=== PATIENT | male | born 1960 | race African-American/Black ===

== ENCOUNTER 2017-11-14 18:35 | Emergency (ER) | payer OTHER ==
[~2017-11-14] VITALS: Ht 180.3 cm; Wt 77.1 kg
[2017-11-14 19:40] VITALS: BP 146/72
[2017-11-14] MEDS ORDERED: PHENERGAN25 M1 ORAL (20:03)
[2017-11-14] MEDS ORDERED: PERCOCET 10-321 EACH ORAL (20:03)
[2017-11-14 20:20] VITALS: BP 146/72
--- NOTE | 2017-11-14 20:55 | Emergency Room Report ---
History of Present Illness General Chief Complaint: Abdominal Pain Source: Patient Present Illness HPI Patient has a history of Crohn's disease or prior abdominal surgery. Patient also states that he has a history of lymphoma. Patient has recurrent Crohn's disease exacerbation and usually requires pain medications. However patient has been in the past and has had concern for drug abuse. Present any fever. Denies any nausea vomiting diarrhea chills. No other complaints are noted. Symptoms noted moderate. Initially patient wanted IM injections of pain medication but when he realized it was a fairly long wait to get of bed he decided that he only wanted prescriptions. Symptoms noted to be moderate to severe. No other modifying factors. No other associated signs and symptoms. No other complaints were noted. Allergies: Coded Allergies: ASPIRIN (Unverified Allergy, Unknown, 09/09/14) BENTIROMIDE (Unverified Allergy, Unknown, 09/09/14) CODEINE (Unverified Allergy, Unknown, 09/09/14) IBUPROFEN (Unverified Allergy, Unknown, 09/09/14) IODINE (Unverified Allergy, Unknown, 09/09/14) KETOROLAC (Unverified Allergy, Unknown, 09/09/14) MORPHINE (Unverified Allergy, Unknown, 09/09/14) PREDNISOLONE (Unverified Allergy, Unknown, 09/09/14) SHELLFISH DERIVED (Unverified Allergy, Unknown, 09/09/14) SULFA (SULFONAMIDE ANTIBIOTICS) (Unverified Allergy, Unknown, 09/09/14) TRAMADOL (Unverified Allergy, Unknown, 09/09/14) Patient History Past Medical History: other - peripheral vascularsease PMH Narrative Crohn's disease, lymphoma PSxH Narrative abdominal surgery Social History: Denies: smoking, alcohol use, drug use Reviewed Nursing Documentation: PMH: Agreed, PSxH: Agreed Nursing Documentation-PMH Hx Cardiac Problems: Yes - PVD Hx Hypertension: Yes Hx Asthma: Yes Hx COPD: No - lymphoma Hx Gastrointestinal Problems: Yes - BOWEL RESECTION, COLOSTOMY, chron's Review of Systems All Other Systems: negative except mentioned in HPI Physical Exam Vital Signs Date Time Temp Pulse Resp B/P (MAP) Pulse Ox O2 Delivery O2 Flow Rate FiO2 11/14/17 18:43 98.2 66 20 155/72 96 Room Air Sp02 EP Interpretation: reviewed, normal General Appearance: normal inspection, well appearing, no apparent distress, alert Head: atraumatic Eyes: bilateral eye normal inspection ENT: normal ENT inspection, hearing grossly normal, normal voice Neck: normal inspection, full range of motion, supple, no bony tend Respiratory: normal inspection, lungs clear, normal breath sounds, no respiratory distress, no retraction, no wheezing Cardiovascular #1: regular rate, rhythm, no edema Gastrointestinal: normal inspection, normal bowel sounds, non tender, soft, no guarding, no hernia Genitourinary: no CVA tenderness Musculoskeletal: normal inspection, back normal, normal range of motion Neurologic: normal inspection, alert, responsive, speech normal Psychiatric: normal inspection, judgement/insight normal, mood/affect normal Skin: normal inspection, normal color, no rash Medical Decision Making Diagnostic Impression: Primary Impression: Chronic pain Additional Impression: Crohn disease ER Course Patient presents emergency department today complaining of abdominal pain. Differential considerations include Crohn's disease, drug seeking behavior, constipation, chronic abdominal pain, gastritis just to name a few. Patient's exam showed benign. Given patient's history of Crohn disease I felt it was reasonable provide pain medications. Patient was given a prescription for pain medications and nausea medications.Patient is advised to follow up with primary doctor in 2-3 days and return the emergency room for any worsening symptoms and as needed. Last Vital Signs Date Time Temp Pulse Resp B/P (MAP) Pulse Ox O2 Delivery O2 Flow Rate FiO2 11/14/17 18:43 98.2 66 20 155/72 96 Room Air Status: improved Disposition: HOME, SELF-CARE Condition: Stable Scripts Promethazine Hcl* (PHENERGAN*) 25 Mg Tablet 25 MG ORAL Q6H, #15 TAB 0 Refills Prov: ELIJAH FRANCIS M.D. 11/14/17 Oxycodone Hcl/Acetaminophen 10-325 Mg Tablet (PERCOCET 10-325 MG TABLET*) 1 Each Tablet 1 TAB ORAL Q6H Y for For Pain, #10 TAB 0 Refills Prov: ELIJAH FRANCIS M.D. 11/14/17 Referrals: NOT CHOSEN IPA/,REFERRING (PCP) Patient Instructions: Abdominal Pain, Adult ELIJAH FRANCIS M.D. Nov 14, 2017 20:54
== END 2017-11-14 20:30 | disposition home or self-care (01) ==
LOC: EMR 19:20
DX: G89.29 Other chronic pain (principal); K50.90 Crohn's disease, unspecified, without complications; Z98.890 Other specified postprocedural states; I10 Essential (primary) hypertension; J45.909 Unspecified asthma, uncomplicated; I73.9 Peripheral vascular disease, unspecified
CPT/HCPCS: 99284

== ENCOUNTER 2017-11-18 09:02 | Emergency (ER) | payer OTHER ==
[~2017-11-18] VITALS: Ht 180.3 cm; Wt 83.9 kg
[~2017-11-18 09:02] MED LIST: PERCOCET 10-321 EACH ORAL; PHENERGAN25 M1 ORAL
[2017-11-18 09:09] VITALS: BP 164/93
[2017-11-18] MEDS ORDERED: ALBUTEROL2.5 MG/3 M INH (09:12)
--- NOTE | 2017-11-18 09:34 | Emergency Room Report ---
History of Present Illness General Chief Complaint: Abdominal Pain Source: Patient Present Illness HPI Patient's 57-year-old male who presented after increased abdominal pain. The patient history of Crohn's disease. He states that he has lymphoma. The patient reports having increased diarrhea. He is chronically on narcotics. The patient is well-known to me for multiple years. Patient had multiple medication allergies. Allergies: Coded Allergies: ASPIRIN (Unverified Allergy, Unknown, 09/09/14) BENTIROMIDE (Unverified Allergy, Unknown, 09/09/14) CODEINE (Unverified Allergy, Unknown, 09/09/14) IBUPROFEN (Unverified Allergy, Unknown, 09/09/14) IODINE (Unverified Allergy, Unknown, 09/09/14) KETOROLAC (Unverified Allergy, Unknown, 09/09/14) MORPHINE (Unverified Allergy, Unknown, 09/09/14) PREDNISOLONE (Unverified Allergy, Unknown, 09/09/14) SHELLFISH DERIVED (Unverified Allergy, Unknown, 09/09/14) SULFA (SULFONAMIDE ANTIBIOTICS) (Unverified Allergy, Unknown, 09/09/14) TRAMADOL (Unverified Allergy, Unknown, 09/09/14) Patient History Past Medical History: see triage record Reviewed Nursing Documentation: PMH: Agreed, PSxH: Agreed Nursing Documentation-PMH Hx Cardiac Problems: Yes - PVD Hx Hypertension: Yes Hx Asthma: Yes Hx COPD: No - lymphoma Hx Gastrointestinal Problems: Yes - BOWEL RESECTION, COLOSTOMY, chron's Review of Systems All Other Systems: negative except mentioned in HPI Physical Exam Vital Signs Date Time Temp Pulse Resp B/P (MAP) Pulse Ox O2 Delivery O2 Flow Rate FiO2 11/18/17 09:09 98.4 79 18 164/93 100 Room Air General Appearance: well appearing, no apparent distress, alert, GCS 15 Head: normocephalic, atraumatic ENT: hearing grossly normal, normal voice Neck: full range of motion, supple Respiratory: no respiratory distress, speaking full sentences Cardiovascular #1: normal peripheral pulses, regular rate, rhythm Gastrointestinal: normal inspection Musculoskeletal: normal inspection, no calf tenderness Neurologic: normal inspection, alert, oriented x3, normal gait Psychiatric: mood/affect normal Skin: no rash Medical Decision Making Diagnostic Impression: Primary Impression: Chronic pain Additional Impression: Crohn disease ER Course Patient presented for abdominal pain. Differential diagnoses included ischemic bowel, appendicitis, perforated viscus, abdominal aortic aneurysm, inferior myocardial infarction, viral gastroenteritis Patient has a benign exam and does not appear to require any further imaging or laboratory testing at this time. The patient was given pain medications. The patient Cures report was reviewed. The patient appears to have adequate dosage of the pain medications. Patient was advised he would not be given prescriptions or further nonnarcotic pain medications if he presented to the emergency department. Last Vital Signs Date Time Temp Pulse Resp B/P (MAP) Pulse Ox O2 Delivery O2 Flow Rate FiO2 11/18/17 09:09 98.4 79 18 164/93 100 Room Air Status: improved Disposition: HOME, SELF-CARE Condition: Stable Patient Instructions: Abdominal Pain, Adult Yuri Reid Nov 18, 2017 09:34
[2017-11-18 09:48] VITALS: BP 164/93
== END 2017-11-18 09:48 | disposition home or self-care (01) ==
LOC: EMR 09:40
DX: G89.29 Other chronic pain (principal); K50.90 Crohn's disease, unspecified, without complications; I10 Essential (primary) hypertension; J45.909 Unspecified asthma, uncomplicated; Z85.72 Personal history of non-Hodgkin lymphomas; I73.9 Peripheral vascular disease, unspecified
CPT/HCPCS: 96372; 99283; J1170; J2550

== ENCOUNTER 2017-12-22 11:49 | Emergency (ER) | payer OTHER ==
[~2017-12-22] VITALS: Ht 180.3 cm; Wt 83.9 kg
[~2017-12-22 11:49] MED LIST changes: +ALBUTEROL2.5 MG/3 M INH
[2017-12-22 12:08] VITALS: BP 169/77
--- NOTE | 2017-12-22 13:37 | Emergency Room Report ---
History of Present Illness General Chief Complaint: Abdominal Pain Present Illness HPI 57 yo male patient presents to ER complaining of abdominal pain. Patient requesting pain medication; states he does not want labs drawn. Reports history of Crohn's Disease and Lymphoma; states he is currently being treated and followed for treatment of both by physician. Reports hx of 5 bowel resection surgeries. Patient reports pain is chronic; states he has prescription for pain medication from primary care but was unable to fill prescription. States he has been seen in ER previously for same symptoms. Denies new or worsening of symptoms. Denies fever, chest pain, SOB, blood in stool, diarrhea, constipation. Allergies: Coded Allergies: ASPIRIN (Unverified Allergy, Unknown, 09/09/14) BENTIROMIDE (Unverified Allergy, Unknown, 09/09/14) CODEINE (Unverified Allergy, Unknown, 09/09/14) DICYCLOMINE (Verified Allergy, Unknown, 12/22/17) IBUPROFEN (Unverified Allergy, Unknown, 09/09/14) IODINE (Unverified Allergy, Unknown, 09/09/14) KETOROLAC (Unverified Allergy, Unknown, 09/09/14) MORPHINE (Unverified Allergy, Unknown, 09/09/14) PREDNISOLONE (Unverified Allergy, Unknown, 09/09/14) PREDNISONE (Verified Allergy, Unknown, 12/22/17) SHELLFISH DERIVED (Unverified Allergy, Unknown, 09/09/14) SULFA (SULFONAMIDE ANTIBIOTICS) (Unverified Allergy, Unknown, 09/09/14) TRAMADOL (Unverified Allergy, Unknown, 09/09/14) Uncoded Allergies: CONTRAST DYE (Allergy, Unknown, 12/22/17) Nursing Documentation-PMH Hx Hypertension: Yes Hx Asthma: Yes Hx COPD: No - lymphoma Hx Cancer: Yes - Lymphoma Hx Gastrointestinal Problems: Yes - BOWEL RESECTION, COLOSTOMY(Surgery no longer has colostomy), Crohn's Review of Systems All Other Systems: negative except mentioned in HPI Physical Exam Vital Signs Date Time Temp Pulse Resp B/P (MAP) Pulse Ox O2 Delivery O2 Flow Rate FiO2 12/22/17 11:58 97.9 71 18 179/79 99 Room Air 97.9 Sp02 EP Interpretation: reviewed, normal General Appearance: no apparent distress, alert, GCS 15, non-toxic Head: normocephalic, atraumatic Eyes: bilateral eye normal inspection, bilateral eye PERRL ENT: hearing grossly normal, normal pharynx, no angioedema, normal voice Neck: full range of motion, supple/symm/no masses Gastrointestinal: normal bowel sounds, non tender, soft, non-distended, no guarding, no rebound Genitourinary: no CVA tenderness Musculoskeletal: back normal, gait/station normal, normal range of motion, non- tender, no calf tenderness Neurologic: alert, oriented x3, responsive, motor strength/tone normal, sensory intact, speech normal Psychiatric: mood/affect normal Skin: normal color, no rash, warm/dry, well hydrated Medical Decision Making PA Attestation Dr. Myers is my supervising Physician whom patient management has been discussed with. Diagnostic Impression: Primary Impression: Chronic pain ER Course Patient presents to ER complaining of abdominal pain. DDx considered but are not limited to appendicitis, ischemic bowel, diverticulitis, gastritis, enteritis. Patient physical exam was negative for abdominal tenderness. Patient does not require imaging or labs at this time. ER COURSE: Patient is resting comfortably, eating food in no acute distress. Patient is requesting opioid pain medication. Review patient CURES report, patient has prescriptions that were recently given to him. Inform patient will not provide him with prescription for pain medication. Provide patient with medication in ER for relief of symptoms. Patient reports feeling better following administration of pain medication. Patient is stable for discharge to home. Informed patient that he needs to consult with his primary care provider regarding prescriptions. Informed patient that he will not be provided with further pain medication on return to ER. Patient will need to consult PCP and/or pain management for further treatment and prescriptions. Patient reports understanding and agreement to treatment plan. Patient questions asked and answered. ER precautions provided to patient. Last Vital Signs Date Time Temp Pulse Resp B/P (MAP) Pulse Ox O2 Delivery O2 Flow Rate FiO2 12/22/17 12:08 97.9 81 18 169/77 99 Room Air 97.9 Disposition: HOME, SELF-CARE Condition: Stable Patient Instructions: Abdominal Pain, Adult Additional Instructions: Followup with primary care provider and pain management in 3 -5 days for further treatment and referral. Contact doctor for prescription refill. Take medications as directed. Patient questions asked and answered. ER precautions given, patient instructed to return to ER immediately for any new or worsening of symptoms. Mansoor García Dec 22, 2017 13:37
[2017-12-22] MEDS ORDERED: HYDROmorphone 1mg/ml Carpuject IM ONE (13:45)
[2017-12-22 13:53] VITALS: BP 169/77
== END 2017-12-22 15:42 | disposition home or self-care (01) ==
LOC: EMR 13:43
DX: G89.29 Other chronic pain (principal); R10.9 Unspecified abdominal pain; I10 Essential (primary) hypertension; J45.909 Unspecified asthma, uncomplicated; Z93.3 Colostomy status; Z85.72 Personal history of non-Hodgkin lymphomas; Z88.6 Allergy status to analgesic agent; Z88.2 Allergy status to sulfonamides; Z91.041 Radiographic dye allergy status; Z91.013 Allergy to seafood
CPT/HCPCS: 96372; 99284; J1170; J2550

== ENCOUNTER → 2018-01-03 | Emergency (ER) | payer OTHER ==
[~2018-01-03] VITALS: Ht 180.3 cm; Wt 83.9 kg
[2018-01-03 16:49] VITALS: BP 158/93
--- NOTE | 2018-01-03 18:08 | Emergency Room Report ---
History of Present Illness General Chief Complaint: Abdominal Pain Source: Patient Present Illness HPI Patient's 57-year-old male who presented after increased abdominal discomfort. The patient is well-known to me. Patient states he has prior history of Crohn' s disease as well as multiple medication allergies. Patient states that he is currently being treated for leukemia. Patient denies seen management. Patient had been seen by me approximately one month ago with similar symptoms. Patient denies any hematemesis or bloody stools. He denies any fever Allergies: Coded Allergies: ASPIRIN (Unverified Allergy, Unknown, 09/09/14) BENTIROMIDE (Unverified Allergy, Unknown, 09/09/14) CODEINE (Unverified Allergy, Unknown, 09/09/14) DICYCLOMINE (Verified Allergy, Unknown, 12/22/17) IBUPROFEN (Unverified Allergy, Unknown, 09/09/14) IODINE (Unverified Allergy, Unknown, 09/09/14) KETOROLAC (Unverified Allergy, Unknown, 09/09/14) MORPHINE (Unverified Allergy, Unknown, 09/09/14) PREDNISOLONE (Unverified Allergy, Unknown, 09/09/14) PREDNISONE (Verified Allergy, Unknown, 12/22/17) SHELLFISH DERIVED (Unverified Allergy, Unknown, 09/09/14) SULFA (SULFONAMIDE ANTIBIOTICS) (Unverified Allergy, Unknown, 09/09/14) TRAMADOL (Unverified Allergy, Unknown, 09/09/14) Uncoded Allergies: CONTRAST DYE (Allergy, Unknown, 12/22/17) Patient History Past Medical History: see triage record Reviewed Nursing Documentation: PMH: Agreed, PSxH: Agreed Nursing Documentation-PMH Past Medical History: No History, Except For Hx Hypertension: Yes Hx Asthma: Yes Hx COPD: No - lymphoma Hx Cancer: Yes - Lymphoma Hx Gastrointestinal Problems: Yes - BOWEL RESECTION, COLOSTOMY(Surgery no longer has colostomy), Crohn's Review of Systems All Other Systems: negative except mentioned in HPI Physical Exam Vital Signs Date Time Temp Pulse Resp B/P (MAP) Pulse Ox O2 Delivery O2 Flow Rate FiO2 01/03/18 16:49 98.1 74 24 158/93 100 Room Air 98.1 General Appearance: well appearing, no apparent distress, alert, GCS 15 Head: normocephalic, atraumatic ENT: hearing grossly normal, normal voice Neck: full range of motion, supple Respiratory: no respiratory distress, speaking full sentences Cardiovascular #1: normal inspection, normal peripheral pulses, regular rate, rhythm, no edema Gastrointestinal: tenderness Musculoskeletal: normal inspection, no calf tenderness Neurologic: normal inspection, alert, oriented x3, responsive, electric stop installer III-XII nml as tested, normal gait Psychiatric: mood/affect normal Skin: no rash Medical Decision Making Diagnostic Impression: Primary Impression: Chronic pain Additional Impression: Crohn disease ER Course Patient presented for abdominal pain. Differential diagnoses included ischemic bowel, appendicitis, perforated viscus, abdominal aortic aneurysm, inferior myocardial infarction, viral gastroenteritis Patient has a benign exam and does not appear to require any further imaging or laboratory testing at this time. The patient had been seen multiple times for similar complaints. The patient had recently been reviewed and cures and had multiple prescriptions from different providers with regard to pain medications. Patient appears to be in no apparent distress. The patient was advised followup with his primary care physician for further evaluation and treatment. Last Vital Signs Date Time Temp Pulse Resp B/P (MAP) Pulse Ox O2 Delivery O2 Flow Rate FiO2 01/03/18 16:49 98.1 74 24 158/93 100 Room Air 98.1 Status: improved Disposition: HOME, SELF-CARE Condition: Stable Patient Instructions: Chronic Pain Yuri Reid Jan 03, 2018 18:08
== END | disposition home or self-care (01) ==
LOC: EMR 16:35
DX: K50.90 Crohn's disease, unspecified, without complications (principal); G89.29 Other chronic pain; I10 Essential (primary) hypertension; J45.909 Unspecified asthma, uncomplicated; Z85.72 Personal history of non-Hodgkin lymphomas; Z88.2 Allergy status to sulfonamides; Z88.6 Allergy status to analgesic agent; Z88.0 Allergy status to penicillin; Z91.013 Allergy to seafood; Z91.041 Radiographic dye allergy status; Z98.890 Other specified postprocedural states
CPT/HCPCS: 99282

== ENCOUNTER 2018-04-15 21:25 | Emergency (ER) | payer OTHER ==
[~2018-04-15] VITALS: Ht 180.3 cm; Wt 80.7 kg
[2018-04-15 21:35] VITALS: BP 159/84
[2018-04-15] MEDS ORDERED: DICYCLOMINE HCL10 MG PO (21:42)
--- NOTE | 2018-04-15 21:54 | Emergency Room Report ---
History of Present Illness General Chief Complaint: Abdominal Pain Present Illness HPI The patient is a 58-year-old male well-known to me who presented after increased complaint of abdominal pain. Patient prior history of reported Crohn' s disease. The patient states he's had multiple surgeries in the past. Patient reports having multiple medication allergies. The patient reports having increased diarrhea as well as abdominal pain. The patient reports having prior history of lymphoma.The patient denies any vomiting. The pain is 10 out of 10. Allergies: Coded Allergies: ASPIRIN (Unverified Allergy, Unknown, 09/09/14) BENTIROMIDE (Unverified Allergy, Unknown, 09/09/14) CODEINE (Unverified Allergy, Unknown, 09/09/14) DICYCLOMINE (Verified Allergy, Unknown, 12/22/17) IBUPROFEN (Unverified Allergy, Unknown, 09/09/14) IODINE (Unverified Allergy, Unknown, 09/09/14) KETOROLAC (Unverified Allergy, Unknown, 09/09/14) MORPHINE (Unverified Allergy, Unknown, 09/09/14) PREDNISOLONE (Unverified Allergy, Unknown, 09/09/14) PREDNISONE (Verified Allergy, Unknown, 12/22/17) SHELLFISH DERIVED (Unverified Allergy, Unknown, 09/09/14) SULFA (SULFONAMIDE ANTIBIOTICS) (Unverified Allergy, Unknown, 09/09/14) TRAMADOL (Unverified Allergy, Unknown, 09/09/14) Uncoded Allergies: CONTRAST DYE (Allergy, Unknown, 12/22/17) Patient History Past Medical History: see triage record Reviewed Nursing Documentation: PMH: Agreed; PSxH: Agreed Nursing Documentation-PMH Hx Hypertension: Yes Hx Asthma: Yes Hx COPD: No - lymphoma Hx Cancer: Yes - Lymphoma Hx Gastrointestinal Problems: Yes - BOWEL RESECTION, COLOSTOMY(Surgery no longer has colostomy), Crohn's Review of Systems All Other Systems: negative except mentioned in HPI Physical Exam Vital Signs Date Time Temp Pulse Resp B/P (MAP) Pulse Ox O2 Delivery O2 Flow Rate FiO2 04/15/18 21:29 98.2 69 18 159/84 98 Room Air 98.2 General Appearance: well appearing, no apparent distress, alert, GCS 15 Head: normocephalic, atraumatic ENT: hearing grossly normal, normal voice Neck: full range of motion, supple Respiratory: no respiratory distress, speaking full sentences Cardiovascular #1: normal inspection Gastrointestinal: normal inspection, normal bowel sounds, non tender, soft, other - multiple surgical scars Musculoskeletal: normal inspection, back normal, digits/nails normal, no calf tenderness Neurologic: normal inspection, alert, oriented x3, responsive, chief cruiser III-XII nml as tested, normal gait Psychiatric: mood/affect normal Skin: no rash Medical Decision Making Diagnostic Impression: Primary Impression: Chronic pain Additional Impression: Drug-seeking behavior ER Course Patient presented for abdominal pain. Differential diagnoses included bowel obstruction, ischemic bowel, appendicitis, perforated viscus, abdominal aortic aneurysm, inferior myocardial infarction, viral gastroenteritis. Patient has a benign exam and does not appear to require any further imaging or laboratory testing at this time. The patient was noted to have no evidence of dehydration at this time. The patient was seen and examined by me.The [facility] database was reviewed for the patient's prior prescription history. The patient was noted to have multiple prescriptions from different providers the most recent of which was 2 days prior to this visit. The patient should have adequate doses of his pain medications. The patient is advised follow-up with his primary care physician. I suspect patient is either diverting or abusing his medications due to the abnormally large number prescriptions. The patient was advised that he would not be given narcotic pain medications and subsequently left the emergency department. Last Vital Signs Date Time Temp Pulse Resp B/P (MAP) Pulse Ox O2 Delivery O2 Flow Rate FiO2 04/15/18 21:29 98.2 69 18 159/84 98 Room Air 98.2 Status: unchanged Disposition: HOME, SELF-CARE Condition: Stable Scripts Dicyclomine Hcl* (DICYCLOMINE HCL*) 10 Mg Capsule 10 MG PO QID, #20 CAP Prov: Yuri Reid MD 04/15/18 Patient Instructions: Abdominal Pain, Adult Yuri Reid MD Apr 15, 2018 21:54
== END 2018-04-15 21:50 | disposition home or self-care (01) ==
LOC: EMR 21:41
DX: G89.29 Other chronic pain (principal); R10.9 Unspecified abdominal pain; Z76.5 Malingerer [conscious simulation]; J45.909 Unspecified asthma, uncomplicated; I10 Essential (primary) hypertension; Z85.72 Personal history of non-Hodgkin lymphomas
CPT/HCPCS: 99283

== ENCOUNTER 2018-04-23 17:15 | Emergency (ER) | payer OTHER ==
[~2018-04-23] VITALS: Ht 180.3 cm; Wt 84.8 kg
[~2018-04-23 17:15] MED LIST changes: +DICYCLOMINE HCL10 MG PO
[2018-04-23 17:55] VITALS: BP 147/84
--- NOTE | 2018-04-23 18:52 | Emergency Room Report ---
History of Present Illness General Chief Complaint: Nausea, Vomiting, and Diarrhea Source: Patient, Medical Record Present Illness HPI Patient presented with complaints of vomiting and diarrhea complained of abdominal discomfort Upon initially evaluated the patient patient wanted to talk about his past regarding living in other cities and other social aspects. I did refocus the patient to the presentation today Patient requesting IV and pain medication reports that he has a history of Hodgkin lymphoma, also reports history of Crohn's disease Denies any fevers or chills Allergies: Coded Allergies: ASPIRIN (Unverified Allergy, Unknown, 09/09/14) BENTIROMIDE (Unverified Allergy, Unknown, 09/09/14) CODEINE (Unverified Allergy, Unknown, 09/09/14) DICYCLOMINE (Verified Allergy, Unknown, 12/22/17) IBUPROFEN (Unverified Allergy, Unknown, 09/09/14) IODINE (Unverified Allergy, Unknown, 09/09/14) KETOROLAC (Unverified Allergy, Unknown, 09/09/14) MORPHINE (Unverified Allergy, Unknown, 09/09/14) PREDNISOLONE (Unverified Allergy, Unknown, 09/09/14) PREDNISONE (Verified Allergy, Unknown, 12/22/17) SHELLFISH DERIVED (Unverified Allergy, Unknown, 09/09/14) SULFA (SULFONAMIDE ANTIBIOTICS) (Unverified Allergy, Unknown, 09/09/14) TRAMADOL (Unverified Allergy, Unknown, 09/09/14) Uncoded Allergies: CONTRAST DYE (Allergy, Unknown, 12/22/17) Patient History Past Medical History: see triage record Pertinent Family History: none Reviewed Nursing Documentation: PMH: Agreed; PSxH: Agreed Nursing Documentation-PMH Past Medical History: No History, Except For Hx Hypertension: Yes Hx Asthma: Yes Hx COPD: No - lymphoma Hx Cancer: Yes - Lymphoma Hx Gastrointestinal Problems: Yes - BOWEL RESECTION, COLOSTOMY(Surgery no longer has colostomy), Crohn's Review of Systems All Other Systems: negative except mentioned in HPI Physical Exam Vital Signs Date Time Temp Pulse Resp B/P (MAP) Pulse Ox O2 Delivery O2 Flow Rate FiO2 04/23/18 17:20 98.4 71 18 147/84 100 Room Air 98.4 Sp02 EP Interpretation: reviewed, normal General Appearance: well appearing, no apparent distress Head: normocephalic, atraumatic Eyes: bilateral eye PERRL, bilateral eye EOMI ENT: hearing grossly normal, normal pharynx Neck: supple Respiratory: lungs clear Cardiovascular #1: regular rate, rhythm Gastrointestinal: non tender, soft Musculoskeletal: normal inspection Neurologic: alert, oriented x3, responsive Skin: normal color, no rash Lymphatic: no adenopathy Medical Decision Making Diagnostic Impression: Primary Impression: Nausea, vomiting, and diarrhea Additional Impression: Drug-seeking behavior ER Course While obtaining history from the patient Patient started to cuss use profanity, using the F word He reported that the questions were making him tired and that he has his records in the computer Patient's initial presentation appeared very comfortable Does not appear to be in acute distress I did suggest obtaining blood work However did not feel providing any further narcotic medication Patient became belligerent and essentially left the emergency room Last Vital Signs Date Time Temp Pulse Resp B/P (MAP) Pulse Ox O2 Delivery O2 Flow Rate FiO2 04/23/18 17:20 98.4 71 18 147/84 100 Room Air 98.4 Status: unchanged Disposition: ELOPED Condition: Stable Referrals: NOT CHOSEN IPA/,REFERRING (PCP) Jyoti Calvo DO Apr 23, 2018 18:52
== END 2018-04-23 17:55 | disposition left against medical advice (07) ==
LOC: EMR 17:55
DX: R11.2 Nausea with vomiting, unspecified (principal); R19.7 Diarrhea, unspecified; Z76.5 Malingerer [conscious simulation]; I10 Essential (primary) hypertension; J45.909 Unspecified asthma, uncomplicated
CPT/HCPCS: 99282

== ENCOUNTER 2019-08-13 09:43 | Emergency (ER) | payer OTHER ==
[~2019-08-13] VITALS: Ht 180.3 cm; Wt 78.5 kg
[2019-08-13 10:00] VITALS: BP 185/89
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
--- NOTE | 2019-08-13 10:14 | Emergency Room Report ---
History of Present Illness General Chief Complaint: Pain Source: Patient Present Illness HPI 59-year-old male history of pain seeking behavior presents with right buttock pain after yesterday, no LOC, patient endorses sharp shooting pain aggravated with movement alleviated with rest severity is mild intermittent patient is requesting strong pain medication. No bowel bladder incontinence/retention No focal weakness Allergies: Coded Allergies: ASPIRIN (Unverified Allergy, Unknown, 09/09/14) BENTIROMIDE (Unverified Allergy, Unknown, 09/09/14) CODEINE (Unverified Allergy, Unknown, 09/09/14) DICYCLOMINE (Verified Allergy, Unknown, 12/22/17) IBUPROFEN (Unverified Allergy, Unknown, 09/09/14) IODINE (Unverified Allergy, Unknown, 09/09/14) KETOROLAC (Unverified Allergy, Unknown, 09/09/14) MORPHINE (Unverified Allergy, Unknown, 09/09/14) PREDNISOLONE (Unverified Allergy, Unknown, 09/09/14) PREDNISONE (Verified Allergy, Unknown, 12/22/17) SHELLFISH DERIVED (Unverified Allergy, Unknown, 09/09/14) SULFA (SULFONAMIDE ANTIBIOTICS) (Unverified Allergy, Unknown, 09/09/14) TRAMADOL (Unverified Allergy, Unknown, 09/09/14) Uncoded Allergies: CONTRAST DYE (Allergy, Unknown, 12/22/17) Patient History Past Medical History: see triage record Reviewed Nursing Documentation: PMH: Agreed; PSxH: Agreed Nursing Documentation-PMH Past Medical History: No History, Except For Hx Hypertension: Yes Hx Asthma: Yes Hx COPD: No - lymphoma Hx Cancer: Yes - Lymphoma Hx Gastrointestinal Problems: Yes - BOWEL RESECTION, COLOSTOMY(Surgery no longer has colostomy), Crohn's Review of Systems All Other Systems: negative except mentioned in HPI Physical Exam Vital Signs Date Time Temp Pulse Resp B/P (MAP) Pulse Ox O2 Delivery O2 Flow Rate FiO2 08/13/19 09:51 98.6 53 15 185/89 (121) 100 Room Air General Appearance: well appearing, no apparent distress Head: normocephalic, atraumatic ENT: hearing grossly normal, normal voice Neck: full range of motion, supple Respiratory: no respiratory distress, speaking full sentences Musculoskeletal: other - Tenderness to palpation right buttock, straight leg raise positive, patient gait intact, 5 out of 5 plantar dorsiflexion foot, knee flexion extension 5 out of 5 strength, flexion extension at the hip 5 out of 5 strength. Neurologic: alert, normal gait Psychiatric: mood/affect normal Skin: no rash Medical Decision Making Diagnostic Impression: Primary Impression: Sciatic leg pain ER Course The patient presents with acute onset of right butt pain after landing on right buttock yesterday. Clinically this patient can be ruled out for serious pathology given there is a completely normal neurological exam, no history of IV drug use, and no history of bowel or bladder incontinence, no perianal numbness/tingling, no constipation or urinary retention. Once the patient's pain was adequately controlled, the patient was able to ambulate and be discharged in stable condition with anticipatory guidance provided. Last Vital Signs Date Time Temp Pulse Resp B/P (MAP) Pulse Ox O2 Delivery O2 Flow Rate FiO2 08/13/19 10:00 98.6 98 15 185/89 100 Room Air Disposition: HOME, SELF-CARE Condition: Stable Referrals: [facility]. [facility] Patient Instructions: Chronic Pain Additional Instructions: The patient was provided with discharge instructions, notified to follow-up with a primary care doctor and or specialist in the next 24-48 hours, and to return to the ED if they have worsening of their symptoms. Please note that this report is being documented using [employer] technology. This can lead to erroneous entry secondary to incorrect interpretation by the dictating instrument. Steven Badillo MD Aug 13, 2019 10:14
[2019-08-13] MEDS ORDERED: oxyCODONE HCL/Acetaminophen 5/325mg ORAL ONE (10:15)
[2019-08-13 10:44] VITALS: BP 179/85
--- NOTE | 2019-08-13 10:44 | NUR ---
ER DISCHARGE NOTE: Patient is cleared to be discharged per ERMD, pt is aox4, on room air, with stable vital signs. pt was given dc and prescription instructions, pt was able to verbalize understanding, pt id band and iv site removed without complications. pt is able to ambulate with steady gait. pt took all belongings. Pt states pain is 0/10.
== END 2019-08-13 10:44 | disposition home or self-care (01) ==
LOC: EMR 10:20
DX: M54.31 Sciatica, right side (principal); Z88.6 Allergy status to analgesic agent; Z88.8 Allergy status to other drugs, medicaments and biological substances; Z91.013 Allergy to seafood; Z88.2 Allergy status to sulfonamides; J45.909 Unspecified asthma, uncomplicated; Z85.72 Personal history of non-Hodgkin lymphomas
CPT/HCPCS: 99282

== ENCOUNTER → 2020-08-25 | Emergency (ER) | payer OTHER ==
[~2020-08-25] VITALS: Ht 180.3 cm; Wt 72.6 kg
[~2020-08-25] MED LIST changes: +Acetaminophen 500mg (ES) tab ORAL ONE
[2020-08-25 19:30] VITALS: BP 197/97
--- NOTE | 2020-08-25 20:10 | NUR ---
ED Nurse Note: pt presents to ED c/o bilat flank pain that radiates into his L leg ongoing for several years. pt states that he has renal insufficiency and was previously on hemodialysis but was taken off of it a few years ago. he now feels that the pain from his kidney problems are returning.
--- NOTE | 2020-08-25 20:15 | NUR ---
ED Nurse Note: pt is refusing meds and EKG, ERMD notfieid
[2020-08-25 20:45] VITALS: BP 197/97
--- NOTE | 2020-08-25 20:45 | NUR ---
ED Nurse Note: pt eloped, refused to sign any paperwork. states that he will get help somewhere else. risks and benefits expained to pt but he did not want to listen, insisted on leaving. pt walked out of ER with steady gait taking all belongings with him.
[2020-08-25 20:46] LABS: BASOPHILS % (AUTO) 1.4 % (0.0-2.0); EOSINOPHILS % (AUTO) 1.8 % (0.0-3.0); HEMATOCRIT 39.3 % (42.0-52.0); HEMOGLOBIN 12.6 G/DL (14.2-18.0); LYMPHOCYTES % (AUTO) 47.7 % (20.0-45.0); MEAN CORPUSCULAR VOLUME 100 FL (80-99); MONOCYTES % (AUTO) 6.1 % (1.0-10.0); NEUTROPHILS % (AUTO) 42.9 % (45.0-75.0); PLATELET COUNT 208 K/UL (150-450); RED BLOOD COUNT 3.95 M/UL (4.70-6.10); RED CELL DISTRIBUTION WIDTH 13.3 % (11.6-14.8); WHITE BLOOD COUNT 8.2 K/UL (4.8-10.8)
[2020-08-25 21:21] LABS: ALANINE AMINOTRANSFERASE 18 U/L (12-78); ALBUMIN 3.4 G/DL (3.4-5.0); ALKALINE PHOSPHATASE 77 U/L (46-116); ASPARTATE AMINO TRANSFERASE 22 U/L (15-37); BILIRUBIN,TOTAL 0.2 MG/DL (0.2-1.0); BLOOD UREA NITROGEN 12 mg/dL (7-18); CALCIUM 8.2 MG/DL (8.5-10.1); CARBON DIOXIDE 25 MMOL/L (21-32); CREATINE KINASE 186 U/L (26-308); CREATININE 1.1 MG/DL (0.55-1.30)
[2020-08-25 21:31] LABS: CHLORIDE 105 MMOL/L (98-107); POTASSIUM 4.1 MMOL/L (3.5-5.1); SODIUM 137 MMOL/L (136-145)
--- NOTE | 2020-08-26 02:50 | Emergency Room Report ---
History of Present Illness General Chief Complaint: General Complaint Source: Patient Present Illness HPI Patient presents complaining of renal failure. There is also complaining about back and leg pain which is chronic. He states he is taking medication for hypertension but does not have any medication for pain. He denies any nausea, vomiting or diarrhea. He denies palpitations or dizziness. He is able to eat without difficulty. He still makes urine without any difficulty. The patient states that in the past he was on dialysis but his renal function improved. The patient states the pain in his back and legs is rated 9/10. It is aching and chronic. He denies any muscle weakness or numbness. He denies headache. When asked if he is taken medications for chronic pain he denies this. He presents labs from several months ago which revealed elevated BUN and creatinine. The patient has a history of Crohn's disease. Currently it is controlled with oral medications. He denies mucousy or bloody stools. The patient is seen multiple times in emergency departments and carries a diagnosis of drug-seeking behavior. He states his doctors have been putting off evaluation recently. No fever, chills, sore throat, chest pain, nausea, vomiting, diarrhea, abdominal pain, shortness of breath, joint pain, rashes, depression, anxiety, visual changes, dizziness, headache. Allergies: Coded Allergies: ASPIRIN (Unverified Allergy, Unknown, 09/09/14) BENTIROMIDE (Unverified Allergy, Unknown, 09/09/14) CODEINE (Unverified Allergy, Unknown, 09/09/14) DICYCLOMINE (Verified Allergy, Unknown, 12/22/17) IBUPROFEN (Unverified Allergy, Unknown, 09/09/14) IODINE (Unverified Allergy, Unknown, 09/09/14) KETOROLAC (Unverified Allergy, Unknown, 09/09/14) MORPHINE (Unverified Allergy, Unknown, 09/09/14) PREDNISOLONE (Unverified Allergy, Unknown, 09/09/14) PREDNISONE (Verified Allergy, Unknown, 12/22/17) SHELLFISH DERIVED (Unverified Allergy, Unknown, 09/09/14) SULFA (SULFONAMIDE ANTIBIOTICS) (Unverified Allergy, Unknown, 09/09/14) TRAMADOL (Unverified Allergy, Unknown, 09/09/14) Uncoded Allergies: CONTRAST DYE (Allergy, Unknown, 12/22/17) COVID-19 Screening Contact w/high risk pt: No Experienced COVID-19 symptoms?: No COVID-19 Testing performed 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 Patient History Past Medical History: see triage record Social History: Reports: smoking Social History Narrative Disabled niurka Onofre originally from [place] Reviewed Nursing Documentation: PMH: Agreed; PSxH: Agreed Nursing Documentation-PMH Past Medical History: No History, Except For Hx Hypertension: Yes Hx Asthma: Yes Hx COPD: No - lymphoma Hx Cancer: Yes - Lymphoma Hx Gastrointestinal Problems: Yes - BOWEL RESECTION, COLOSTOMY(Surgery no longer has colostomy), Crohn's Review of Systems All Other Systems: negative except mentioned in HPI Physical Exam Vital Signs Date Time Temp Pulse Resp B/P (MAP) Pulse Ox O2 Delivery O2 Flow Rate FiO2 08/25/20 19:27 97.9 58 16 197/97 (130) 100 Room Air Sp02 EP Interpretation: reviewed, normal General Appearance: well appearing, no apparent distress, GCS 15 Head: normocephalic Eyes: bilateral eye normal inspection, bilateral eye PERRL, bilateral eye EOMI ENT: moist mucus membranes - Poor dentition Neck: supple Respiratory: lungs clear, normal breath sounds Cardiovascular #1: regular rate, rhythm Cardiovascular #2: 2+ radial (R) Gastrointestinal: normal inspection, normal bowel sounds, non tender, no mass, non-distended Musculoskeletal: back normal, normal range of motion, gait/station normal Neurologic: alert, oriented x3, grossly normal Psychiatric: mood/affect normal - Pressuring to get pain medication Skin: no rash, warm/dry Medical Decision Making Diagnostic Impression: Primary Impression: Chronic pain Qualified Codes: G89.29 - Other chronic pain Additional Impressions: History of renal failure Drug-seeking behavior Hypertension Qualified Codes: I10 - Essential (primary) hypertension ER Course Patient presents alleging that he has renal failure and complaining about increase in chronic pain. Differential includes renal failure, hyperkalemia, electrolyte abnormality, exacerbation of chronic pain, drug-seeking behavior, amongst others. Patient needs evaluation with EKG and labs. Discussed with patient options for treatment of his pain. Initially ketamine IM ordered. Patient refused this and therefore order not carried out. Next offered Reglan, Benadryl and Tylenol. Patient refused these also. Patient refused EKG. Patient agitated and insisting that he be treated for pain. He is specifically requesting Dilaudid. I discussed with him that I was attempting to do so but he refused. Patient eloped before labs returned. Labs significant for normal CBC and CMP. Laboratory Tests Test 08/25/20 20:21 White Blood Count 8.2 K/UL (4.8-10.8) Red Blood Count 3.95 M/UL (4.70-6.10) L Hemoglobin 12.6 G/DL (14.2-18.0) L Hematocrit 39.3 % (42.0-52.0) L Mean Corpuscular Volume 100 FL (80-99) H Mean Corpuscular Hemoglobin 31.8 PG (27.0-31.0) H Mean Corpuscular Hemoglobin Concent 32.0 G/DL (32.0-36.0) Red Cell Distribution Width 13.3 % (11.6-14.8) Platelet Count 208 K/UL (150-450) Mean Platelet Volume 6.9 FL (6.5-10.1) Neutrophils (%) (Auto) 42.9 % (45.0-75.0) L Lymphocytes (%) (Auto) 47.7 % (20.0-45.0) H Monocytes (%) (Auto) 6.1 % (1.0-10.0) Eosinophils (%) (Auto) 1.8 % (0.0-3.0) Basophils (%) (Auto) 1.4 % (0.0-2.0) Sodium Level 137 MMOL/L (136-145) Potassium Level 4.1 MMOL/L (3.5-5.1) Chloride Level 105 MMOL/L (98-107) Carbon Dioxide Level 25 MMOL/L (21-32) Blood Urea Nitrogen 12 mg/dL (7-18) Creatinine 1.1 MG/DL (0.55-1.30) Estimated Glomerular Filtration Rate > 60 mL/min (>60) Glucose Level 95 MG/DL (74-106) Calcium Level 8.2 MG/DL (8.5-10.1) L Total Bilirubin 0.2 MG/DL (0.2-1.0) Aspartate Amino Transferase (AST) 22 U/L (15-37) Alanine Aminotransferase (ALT) 18 U/L (12-78) Alkaline Phosphatase 77 U/L (46-116) Total Creatine Kinase 186 U/L (26-308) Troponin I 0.000 ng/mL (0.000-0.056) Pro-B-Type Natriuretic Peptide 579 pg/mL (0-125) H Total Protein 6.8 G/DL (6.4-8.2) Albumin 3.4 G/DL (3.4-5.0) Globulin 3.4 g/dL Albumin/Globulin Ratio 1.0 (1.0-2.7) Last Vital Signs Date Time Temp Pulse Resp B/P (MAP) Pulse Ox O2 Delivery O2 Flow Rate FiO2 08/25/20 20:45 97.9 86 16 197/97 100 Room Air Status: unchanged Disposition: ELOPED Condition: Stable Referrals: NON PHYSICIAN (PCP) Mitchel Funez MD Aug 26, 2020 02:50
== END | disposition left against medical advice (07) ==
LOC: EMR 19:55
DX: G89.29 Other chronic pain (principal); I10 Essential (primary) hypertension; Z76.5 Malingerer [conscious simulation]; Z85.72 Personal history of non-Hodgkin lymphomas; K50.90 Crohn's disease, unspecified, without complications; Z88.6 Allergy status to analgesic agent; Z88.2 Allergy status to sulfonamides; Z88.8 Allergy status to other drugs, medicaments and biological substances; Z91.041 Radiographic dye allergy status; F17.200 Nicotine dependence, unspecified, uncomplicated; M54.9 Dorsalgia, unspecified; M79.606 Pain in leg, unspecified
CPT/HCPCS: 36415; 80053; 82550; 83880; 84484; 85025; Z7502; 99283